=== PATIENT | male | born 1975 | race Caucasian/White ===

== ENCOUNTER 2023-02-13 18:32 | Emergency (ER) | payer MEDICAID ==
[~2023-02-13] VITALS: Ht 180.3 cm; Wt 90.0 kg
[2023-02-13 20:51] LABS: BASOPHILS % 0.2 % (0.0-2.0); EOSINOPHILS % 0.1 % (0.0-5.0); HEMATOCRIT. 35.8 % (42.0-52.0); HEMOGLOBIN. 11.8 g/dL (14.0-18.0); LYMPHOCYTES % 7.4 % (20.0-50.0); MEAN CORPUSCULAR HEMOGLOBIN 27.3 pg (28.0-32.0); MEAN CORPUSCULAR VOLUME 82.7 fL (80.0-94.0); MEAN PLATELET VOLUME 8.4 fl (7.4-10.4); NEUTROPHILS % 86.3 % (40.0-76.0); PLATELET 187 x1000/uL (130-400); RED BLOOD CELL COUNT 4.32 mill/uL (4.7-6.1); RED CELL DISTRIBUTION WIDTH 18.2 % (11.6-14.6)
[2023-02-13 20:55] LABS: CHLORIDE 103 mEq/L (98-107)
[2023-02-13 21:19] LABS: ETHANOL BLOOD < 10 mg/dL
[2023-02-14] MEDS: OLANZAPINE 5MG TABLET ODT PO SCH ×2 (12:09→17:00)
[2023-02-14 14:24] LABS: *AMPHETAMINES SCREEN URINE NEGATIVE (NEGATIVE); *BARBITURATES SCREEN URINE NEGATIVE (NEGATIVE); *BENZODIAZEPINES SCREEN URINE NEGATIVE (NEGATIVE); *COCAINE SCREEN URINE NEGATIVE (NEGATIVE); CANNABINOID URINE SCREEN PRESUMTIVE POSITIVE (NEGATIVE); METHADONE URINE SCREEN NEGATIVE (NEGATIVE); OPIATES URINE SCREEN NEGATIVE (NEGATIVE); PHENCYCLIDINE URINE SCREEN NEGATIVE (NEGATIVE)
[2023-02-14 19:37] LABS: CLARITY URINE CLEAR (CLEAR); COLOR URINE YELLOW (YELLOW); KETONES URINE NEGATIVE (NEGATIVE); LEUKOCYTE ESTERASE URINE NEGATIVE (NEGATIVE); NITRITE URINE NEGATIVE (NEGATIVE); OCCULT BLOOD URINE NEGATIVE (NEGATIVE); PH URINE >=9.0 (4.5-8.0); PROTEIN URINE TRACE (NEGATIVE); SPECIFIC GRAVITY URINE 1.022 (1.005-1.030)
[2023-02-15] MEDS: OLANZAPINE 5MG TABLET ODT PO SCH ×3 (09:15→17:36)
[2023-02-15] MEDS: VENLAFAXINE HCL 37.5MG TABLET PO SCH (11:09)
[2023-02-15] MEDS: BUSPIRONE HCL 5MG TABLET PO SCH ×2 (11:36→22:00)
[2023-02-16] MEDS: OLANZAPINE 5MG TABLET ODT PO SCH ×2 (09:00→17:26)
[2023-02-16] MEDS: VENLAFAXINE HCL 37.5MG TABLET PO SCH (09:00)
[2023-02-16] MEDS: BUSPIRONE HCL 5MG TABLET PO SCH (09:00)
[2023-02-16 16:49] VITALS: BP 126/67
== END 2023-02-16 17:40 ==
LOC: ER 18:32
DX: R45.851 Suicidal ideations (principal); R44.0 Auditory hallucinations; I10 Essential (primary) hypertension; Z20.822 Contact with and (suspected) exposure to COVID-19
CPT/HCPCS: 36415; 80053; 80307; 80320; 80329; 85025; 87426; 99285; C9803; G0480